=== PATIENT | female | born 1975 | race African-American/Black ===

== ENCOUNTER 2016-08-09 11:39 | Emergency (ER) | payer MEDICAID ==
[2016-08-09] MEDS ORDERED: KETOROLAC 60 MG/2 ML VIAL IM ONE (12:03)
[2016-08-09] MEDS ORDERED: TRAMADOL 50 MG TAB ONE (12:03)
[2016-08-09] MEDS ORDERED: Ibuprofen 400 MG TAB ONE ×2 (12:06→12:07)
== END 2016-08-09 13:10 | disposition home or self-care (01) ==
LOC: ER 11:39
DX: S39.012A Strain of muscle, fascia and tendon of lower back, initial encounter (principal); F17.200 Nicotine dependence, unspecified, uncomplicated
CPT/HCPCS: 72100